=== PATIENT | female | born 1955 | race Caucasian/White ===

== ENCOUNTER 2024-02-23 09:56 | Day surgery (SDC) | payer MEDICARE, BC ==
[~2024-02-23] VITALS: Ht 170.2 cm; Wt 62.6 kg
[~2024-02-23 09:56] MED LIST: LR 1,000 ML IV SCH; Ondansetron 4 MG/2 ML VIAL IV PRN
[2024-02-23] MEDS ORDERED: Lidocaine PF 2% (20 MG/ML) 5 ML VIAL ONE (11:20)
--- NOTE | 2024-02-23 11:27 | NUR ---
Pt arrived with self, ride to be called; bowels WNL for the procedure; VSS, RR even and unlabored; reviewed meds/allergies/pharm/history and updated; consent reviewed and signed, no questions/concerns; to place IV and await procedure.
[2024-02-23 11:28] VITALS: BP 129/59; PULSE 76; TEMP 96.9
[2024-02-23 12:20] VITALS: BP 111/68; PULSE 76
[2024-02-23 12:30] VITALS: BP 118/69; PULSE 72
[2024-02-23 13:49] VITALS: BP 111/68; PULSE 74
--- NOTE | 2024-02-23 15:25 | NUR ---
1220- PT BACK FROM ENDO PROCEDURE TO BAY 8 VIA CART. PT AMBULATED FROM CART TO CHAIR WITH ASSISTANCE. MONITORS ON AND ALARMS SET. REPORT RECIEVED FROM [facility]. PT STILL VERY SLEEPY. VSS. PT ALERT TO VOICES. NO OTHER NEEDS AT THIS TIME. CALL LIGHT WITHIN REACH. 1230- PT REQUESTING FOOD AND DRINK. PT TOLERATED FOOD AND DRINK WELL WITH NO COMPLICATION. 1255- DISCHARGE INSTRUCTIONS GIVEN TO PT WITH DAUGHTER AT CHAIRSIDE. ALL QUESTIONS ANSWERED. 1315- PT TRANSFERRED OUT OF HOSPITAL VIA WHEELCHAIR TO OWN PRIVATE VEHICLE DRIVEN BY DAUGHTER.
== END 2024-02-23 13:15 | disposition home or self-care (01) ==
LOC: SDCO 09:56
DX: Z12.11 Encounter for screening for malignant neoplasm of colon (principal); K57.30 Diverticulosis of large intestine without perforation or abscess without bleeding
CPT/HCPCS: J2704; J7120